=== PATIENT | male | born 1990 | race Caucasian/White ===

== ENCOUNTER 2017-09-23 06:02 | Day surgery (SDC) | payer OTHER ==
[2017-09-15 16:17] VITALS: BMI 24.4
[2017-09-23 11:51] VITALS: TEMP 97.8
[2017-09-23 13:23] VITALS: BP 131/76; PULSE 81
== END 2017-09-23 13:15 | disposition home or self-care (01) ==
LOC: FASU 06:02
PROVIDERS: ATTEND Orthopaedic Surgery Sports Medicine
PROC: 0MRN47Z Replacement of Right Knee Bursa and Ligament with Autologous Tissue Substitute, Percutaneous Endoscopic Approach (ICD-10-PCS; principal; 2017-09-23)
DX: S83.511A Sprain of anterior cruciate ligament of right knee, initial encounter (principal); X58.XXXA Exposure to other specified factors, initial encounter; Y93.9 Activity, unspecified; Y92.9 Unspecified place or not applicable
CPT/HCPCS: 94760